=== PATIENT | male | born 1990 | race Caucasian/White ===

== ENCOUNTER 2018-06-28 10:50 | Emergency (ER) | payer OTHER ==
[~2018-06-28] VITALS: Ht 167.6 cm; Wt 64.4 kg
== END 2018-06-28 11:30 | disposition home or self-care (01) ==
LOC: ER 10:50
DX: K40.90 Unilateral inguinal hernia, without obstruction or gangrene, not specified as recurrent (principal)

== ENCOUNTER 2019-01-07 09:12 | Emergency (ER) | payer OTHER ==
[~2019-01-07] VITALS: Ht 167.6 cm; Wt 59.9 kg
[2019-01-07] MEDS ORDERED: PEPTO-BISM262 MG/15 (09:21)
[2019-01-07] MEDS ORDERED: ZANTAC150 M3 (09:21)
== END 2019-01-07 11:29 | disposition home or self-care (01) ==
LOC: ER 09:12
DX: K80.20 Calculus of gallbladder without cholecystitis without obstruction (principal); R10.13 Epigastric pain